=== PATIENT | male | born 1975 ===

== ENCOUNTER → 2024-02-02 18:00 | Outpatient (REF) | payer BC, SELFPAY ==
--- NOTE | 2024-01-27 11:24 | PN.DIAED02 ---
Referral
DSME Class Series Code: [id number]
Referred For: Diabetes Self-Management Training, Medical Nutrition Therapy, Self-Blood Glucose Monitoring, Long-Term Complication Instruction, Accute Complication Instruction, Continuous Glucose Monitoring, Medication management, Disease Management
PHI Release Authorization Form Signed: Yes
Patient Problems:
Current Active Problems
Problem Status Onset
Type 2 diabetes mellitus with hyperglycemia ~01/19/24
Demographic
(1) Type 2 diabetes mellitus with hyperglycemia
Status: Acute Onset Date: ~01/19/24 Code(s): E11.65 - Type 2 diabetes mellitus with hyperglycemia
Patient's primary language-: Slovak
Education: Some college
Occupation: Professional
Hours Worked/Week: > 40
Shift: Day
- Social
Primary Support Person: Self
Primary Care Takers: Self
Living Arrangements: Self & spouse
- Learning Methods
Preferred Method: Reading, Lecture/audio, Hands-on demonstration, Video
Barriers to Learning: None
Glycemic Control
- Blood Glucose Monitoring Assessment
Date: 01/19/24 (FBG 318)
Blood glucose monitoring at home: Yes
Monitor Brands: [employer] (Makayla 2)
Time: fasting, before breakfast, after breakfast, before lunch, after lunch, before dinner, after dinner, bedtime
Patient uses Alternate Site Testing: No
Patient instructed on Use and Limitation: No
- Ketone Monitoring Assessment
Patient monitoring ketone: No
- Hyperglycemia Assessment
Experiences Hyperglycemia: Yes
Frequency: 4-6x per week
Hitory of DKA/HHS: No
- Hypoglycemia Assessment
Patient carries glucose source: No
Patient experiences hypoglycemia: No
- Hemoglobin A1c
Date: 01/19/24
A1C Percentage (%): 12.1
Medical History of Diabetes
Family Diabetes History: Mother
Current Home Medication
- Insulin Management
Patient adjusts own insulin dosages: No
Patient has access to glucagon: No
Measures
- Anthropometrics
Height: 6 ft
Actual Weight: 91.626 kg
- Blood Pressure / Pulse
Blood pressure: 137/85
Pulse: 67
- Diabetes Management
Medical Management for Diabetes: Complete physical exam (12/31/2023)
Self-Care
- Tobacco Usage
Do you now, or have you ever smoked?: Quit more than 1 year ago (10 YEARS AGO)
- Alcohol & Drugs Usage
Drinks Alcohol: Yes
Amount/day: Social Occasions
Uses Recreational Drugs: No
- Meals & Dining
Meals & Dining: Patient skips meals: Yes, Food Intolerance / Allergy: Yes (Whole Milk ), Cultural / Yazidism Dietary Needs: No
Primary Food Web Press Operator Assistant: Self
Primary Helper Marble Finisher: Self
Dining Out Frequency: 1-3x per week
- Physical Activity
Physical Limitation: No
Patient participates in physical Activity: No
- Self Foot-Care
Foot Problems: None
Performs Self Foot-Exam: No
- Patient-Self Assessment
Diabetes Knowledge: Poor
Feelings About Diabetes: Adaptation
General Health: Good
Importance of Health: Extremely
Stress Level: Medium
Diabetes Interferes With:: Nothing
Barriers to Diabetes Management: Nothing
Depression Survey Score: 2
- Diabetes Identification
Carries Diabetes Identification: No
Diabetes Identification Information Provided: No
Care Plan
- Education Needs
Patient Education Needs: Diabetes disease process, Chronic complications, Acute complications, Medication, Monitoring, Physical activity, Psychosocial Adjustment, Nutritional management, Goal setting & problem solving
Recommended Diabetes Training Program based on assessment: Outpatient Diabetes Education Program
- Plan of Care
Plan of Care:
Met with Mr. Son today for registration and initiation of Diabetes Self management. Pt was recommended by his PCP due to elevated A1C of 12.1% that was noted on recent blood work. Patient stated that he has been using a CGM Makayla 2 for glucose
monitoring at home.
He also presented to the appointment with a Contour Next Ez glucometer that was prescribed by PCP for backup use.
He was recently started on Metformin 1000mg BID, on 01/14 and was instructed to start taking Lisinopril 2.5 mg and Atorvastatin 20mg daily on 01/29/2024, 2 weeks after starting Metformin. Pt states that he is still experiencing elevated blood sugars,
he reports FBG >300. We spent a good amount of time discussing his elevated A1C of 12.1% and need to add another oral Diabetic agent for optimal glucose control, pt was agreeable and Glipizide 5mg BID was prescribed and sent script to his pharmacy.
Pt was instructed to start taking Glipizide this evening with dinner.
He was counseled with emphasis on need to adhere to a healthy life style including healthy eating, exercising, taking his medications and monitoring blood glucose. Goals for physical activity were established; pt will start exercising using his
Archive bike for 30mins 5 days a week.
--- NOTE | 2024-01-27 11:49 | PN.DIAED04 ---
Education Record
- Education Record
Class Attended: Other (Pre-Registration for DSME classes)
DSME Class Series Code: [id number]
Instructor: Nurse Practitioner
Class Length (mins): 60
Pre-Program Knowledge: No knowledge
Pre-Test Score (%): 48
Goals
- Goal 1
Being Active: Exercise 30 minutes-5 times per week
Goals To Be Evaluated: Exercise 30 mins-5x/week
- Goal 2
Healthy Eating: Follow meal plan (Pt has had ~20lbs of unintentional weight loss over the past year. States he wants to gain back muscle mass )
Goals To Be Evaluated: Follow meal plan
- Goal 3
Monitoring: Follow monitoring schedule
Goals To Be Evaluated: Follow monitoring times
--- NOTE | 2024-02-04 08:15 | PN.DIAED04 ---
Education Record
- Education Record
Class Attended: Class 1
DSME Class Series Code: [id number]
Instructor: Registered Nurse (Irene Reeder, RN, BSN, CDE)
Class Length (mins): 120
Post-Class 1 Test Score (%): 100
--- NOTE | 2024-02-04 08:16 | PN.DIAED14 ---
This is to notify you that your patient with diabetes, JOVANNI WELLS ( 1975), has enrolled in our diabetes self-management classes that are being held at [facility].
These classes will include an introduction to diabetes, diet, medication, exercise and prevention of complications. At the end of our class series, you will receive a report of your patient's participation and progress for your records.
Please contact me at the Diabetes Center, , if there is any particular information regarding your patient that might be helpful to me.
Sincerely,
SHARON Barger-, [facility]
Diabetes & Nutrition Services Director
--- NOTE | 2024-02-05 14:26 | PN.DIAED06 ---
Meal Plans - Regular
- Meal Plan
Diabetic Meal Plan Name: 2200 calories
Breakfast - Total Carbohydrate (grams): 60
Breakfast - Starch Carbohydrate: 0
Breakfast - Fruit Carbohydrate: 0
Breakfast - Milk Carbohydrate: 0
Breakfast - Nonstarchy Vegetables: Yes
Breakfast - Meat/Protein: 1
Breakfast - Fat: 2
Morning Snack - Total Carbohydrate (grams): 30
Morning Snack - Starch Carbohydrate: 0
Morning Snack - Fruit Carbohydrate: 0
Morning Snack - Milk Carbohydrate: 0
Morning Snack - Nonstarchy Vegetables: Yes
Morning Snack - Meat/Protein: 0.5
Morning Snack - Fat: 0
Lunch - Total Carbohydrate (grams): 45
Lunch - Starch Carbohydrate: 0
Lunch - Fruit Carbohydrate: 0
Lunch - Milk Carbohydrate: 0
Lunch - Nonstarchy Vegetables: Yes
Lunch - Meat/Protein: 3
Lunch - Fat: 2
Afternoon Snack - Total Carbohydrate (grams): 30
Afternoon Snack - Starch Carbohydrate: 0
Afternoon Snack - Fruit Carbohydrate: 0
Afternoon Snack - Milk Carbohydrate: 0
Afternoon Snack - Nonstarchy Vegetables: Yes
Afternoon Snack - Meat/Protein: 0.5
Afternoon Snack - Fat: 0
Dinner - Total Carbohydrate (grams): 45
Dinner - Starch Carbohydrate: 0
Dinner - Fruit Carbohydrate: 0
Dinner - Milk Carbohydrate: 0
Dinner - Nonstarchy Vegetables: Yes
Dinner - Meat/Protein: 4
Dinner - Fat: 2
Evening Snack - Total Carbohydrate (grams): 15
Evening Snack - Starch Carbohydrate: 0
Evening Snack - Fruit Carbohydrate: 0
Evening Snack - Milk Carbohydrate: 0
Evening Snack - Nonstarchy Vegetables: Yes
Evening Snack - Meat/Protein: 0
Evening Snack - Fat: 0
== END ==
LOC: DES 18:00
PROVIDERS: ATTENDING PHYSICIAN Nurse Practitioner Family
DX: E11.65 Type 2 diabetes mellitus with hyperglycemia (principal)
CPT/HCPCS: 99078

== ENCOUNTER → 2024-02-09 18:00 | Outpatient (REF) | payer BC, SELFPAY ==
--- NOTE | 2024-02-11 08:25 | PN.DIAED04 ---
Education Record
- Education Record
Class Attended: Class 2
[facility]: [id number]
Instructor: Registered Dietitian (Sulema Bertrand, CAROLYNEN, LDN)
Class Length (mins): 120
== END ==
LOC: DES 18:00
PROVIDERS: ATTENDING PHYSICIAN Nurse Practitioner Family
DX: E11.65 Type 2 diabetes mellitus with hyperglycemia (principal)
CPT/HCPCS: 99078

== ENCOUNTER → 2024-02-16 18:00 | Outpatient (REF) | payer BC, SELFPAY ==
--- NOTE | 2024-02-18 08:43 | PN.DIAED04 ---
Education Record
- Education Record
Class Attended: Class 3
DSME Class Series Code: [id number]
Instructor: Registered Dietitian (Milana Lee, RD, LDN, CDE)
Class Length (mins): 120
Post-Class 2 & 3 Test Score (%): 81
== END ==
LOC: DES 18:00
PROVIDERS: ATTENDING PHYSICIAN Nurse Practitioner Family
DX: E11.65 Type 2 diabetes mellitus with hyperglycemia (principal)
CPT/HCPCS: 99078

== ENCOUNTER → 2024-02-23 18:00 | Outpatient (REF) | payer BC, SELFPAY ==
--- NOTE | 2024-02-25 12:43 | PN.DIAED04 ---
Education Record
- Education Record
Class Attended: Class 4
DSME Class Series Code: [id number]
Instructor: Registered Nurse (Irene Reeder, RN, BSN, CDE)
Class Length (mins): 120
Post-Class 4 Test Score (%): 100
== END ==
LOC: DES 18:00
PROVIDERS: ATTENDING PHYSICIAN Nurse Practitioner Family
DX: E11.65 Type 2 diabetes mellitus with hyperglycemia (principal)
CPT/HCPCS: 99078

== ENCOUNTER → 2024-03-01 18:00 | Outpatient (REF) | payer BC, SELFPAY ==
--- NOTE | 2024-03-03 14:14 | PN.DIAED16 ---
This is to notify you that your patient with diabetes, JOVANNI WELLS ( 1975), has attended the entire series of Diabetes Self-Management Education Classes.
Class 1 (120 minutes): Diabetes Overview - monitoring, stress/psychosocial adjustment, support, goal setting
Class 2 (120 minutes): Meal Planning - serving sizes, menu plans
Class 3 (120 minutes): Introduction to Carbohydrate Counting, Analyzing Food Labels
Class 4 (120 minutes): Medication, Exercise and Activity
Class 5 (120 minutes): Sick Day Management, Strategies to Reduce Complications, Problem Solving, Resources
The following behavioral goals were identified:
Exercise 30 mins-5x/week
Follow meal plan
Follow monitoring times
A follow-up call will be made within three to six months to evaluate attainment of these goals and to check post-program Hemoglobin A1c and overall progress. All class participants are encouraged to contact me if I can be any further assistance in
learning how to manage their diabetes.
Sincerely,
SHARON Barger-, [facility]
Diabetes & Nutrition Services Director
== END ==
LOC: DES 18:00
PROVIDERS: ATTENDING PHYSICIAN Nurse Practitioner Family
DX: E11.65 Type 2 diabetes mellitus with hyperglycemia (principal)
CPT/HCPCS: 99078